=== PATIENT | female | born 1995 | race African-American/Black ===

== ENCOUNTER → 2017-09-13 | Outpatient (CLI) | payer BC ==
[2017-09-13 11:56] LABS: ALANINE AMINOTRANSFERASE 17 U/L (9-52); ASPARTATE AMINO TRANSFERASE 15 U/L (14-36)
== END ==
LOC: OD 10:52
PROVIDERS: ATTEND Podiatrist Foot Surgery
DX: B35.1 Tinea unguium (principal)
CPT/HCPCS: 36415; 84450; 84460

== ENCOUNTER → 2019-02-21 | Outpatient (CLI) | payer BC ==
[2019-02-21 12:40] LABS: ASPARTATE AMINO TRANSFERASE 33 U/L (14-36)
== END ==
LOC: OD 11:30
PROVIDERS: ATTEND Podiatrist Foot Surgery
DX: B35.1 Tinea unguium (principal)
CPT/HCPCS: 36415; 84450; 84460